=== PATIENT | male | born 1980 | race African-American/Black ===

== ENCOUNTER 2018-02-17 15:00 | Emergency (ER) | payer OTHER ==
[~2018-02-17] VITALS: Ht 162.6 cm; Wt 75.7 kg
[~2018-02-17 15:00] MED LIST: AMOX1TAB12 PO
[2018-02-18] MEDS ORDERED: PEPCID AC20 MG PO (00:04)
[2018-02-18] MEDS ORDERED: LOPERAMIDE2 M1 PO (00:04)
[2018-02-18] MEDS ORDERED: LEVSIN/SL0.125 MG SL (00:04)
[2018-02-18] MEDS ORDERED: METRONIDAZOLE500 MG PO (00:04)
[2018-02-18] MEDS ORDERED: INTESTINEX680 M1 PO (00:04)
[2018-02-18] MEDS ORDERED: CIPRO500 MG PO (00:04)
== END 2018-02-18 00:13 | disposition home or self-care (01) ==
LOC: ER 15:00
DX: K52.89 Other specified noninfective gastroenteritis and colitis (principal); K57.90 Diverticulosis of intestine, part unspecified, without perforation or abscess without bleeding